=== PATIENT | male | born 1975 | race Caucasian/White ===

== ENCOUNTER → 2022-08-12 09:57 | Outpatient (BNVA) | payer OTHER, SELFPAY | PROVIDERS: Visit Provider Nurse Practitioner Family | DX: S89.92XA Unspecified injury of left lower leg, initial encounter (principal); W01.0XXA Fall on same level from slipping, tripping and stumbling without subsequent striking against object, initial encounter; Y93.64 Activity, baseball; M23.92 Unspecified internal derangement of left knee | CPT/HCPCS: 73560; 73565 ==

== ENCOUNTER 2022-09-04 09:36 | Outpatient (CLI) | payer OTHER, SELFPAY ==
--- NOTE | 2022-09-04 09:30 | MR_ITS ---
WS: [id number] MRI LEFT KNEE HISTORY: left knee pain COMPARISON: 08/12/2022 Anterior cruciate ligament: Intact. Posterior cruciate ligament: Intact. Medial collateral ligament: Intact. Posterior lateral corner structures: Intact. Medial menisci: Intact. Normal signal, size and shape. Lateral meniscus: Intact. Normal signal, size and shape. Extensor mechanism: Distal quadriceps tendon and patellar tendons are intact. Fluid and soft tissue: Very small suprapatellar joint effusion. No Kwok cyst. Osseous and articular structures: Patellofemoral compartment: Normal. Medial compartment: No significant narrowing. Very small amount of subchondral marrow edema along the tibial plateau. Lateral compartment: Very minimal narrowing with fissuring of the cartilage. No full-thickness defect s. No marrow edema. Small amount of edema adjacent to the medial head of the gastrocnemius and semimembranous tendon. MR/MR knee LT wo con* [id number] IMPRESSION: 1. No meniscal tear or ACL tear. 2. Small suprapatellar effusion. 3. Very mild degenerative changes in the medial compartment. 4. Small amount of soft tissue edema adjacent to the semimembranosus tendon an d the gastrocnemius medial head. May be the site of an early developing Kwok c yst or ruptured Kwok cyst.
== END 2022-09-04 09:37 | disposition home or self-care (01) ==
PROVIDERS: Visit Provider Nurse Practitioner Family
DX: S89.90XA Unspecified injury of unspecified lower leg, initial encounter (principal); X58.XXXA Exposure to other specified factors, initial encounter; M23.92 Unspecified internal derangement of left knee; M25.462 Effusion, left knee; M17.12 Unilateral primary osteoarthritis, left knee
CPT/HCPCS: 73721